=== PATIENT | male | born 1990 ===

== ENCOUNTER 2017-11-21 08:05 | Day surgery (SDC) | payer MEDICAID ==
[2017-11-15 08:38] VITALS: BMI 292.8
[2017-11-21] MEDS ORDERED: Lactated Ringer's 1,000 ML IV ONE (10:00)
[2017-11-21 10:28] VITALS: RESP 18
[2017-11-21] MEDS ORDERED: Bupivacaine HCl 0.25% PF (30 ml) Inj ONE (12:16)
[2017-11-21] MEDS ORDERED: Lidocaine 2% Inj (20ml) ONE (12:17)
[2017-11-21] MEDS ORDERED: Bupivacaine 0.5% Inj(30mL) ONE (12:17)
[2017-11-21] MEDS ORDERED: Lidocaine 2% Jelly (Uro-Jet) ONE (12:17)
[2017-11-21] MEDS ORDERED: Lidocaine 1% w Epi 1:100,000 Inj ONE (12:17)
[2017-11-21] MEDS ORDERED: Lidocaine Hydrochloride 1% 20 ML ONE (12:26)
[2017-11-21] MEDS ORDERED: Lidocaine 1% (10 ml) Inj IV ONE (12:45)
[2017-11-21 13:16] VITALS: BP 131/68; PULSE 68; TEMP 98; O2SAT 100
--- NOTE | 2017-12-13 21:23 | OP ---
PROCEDURE DATE: 11/21/2017 PREOPERATIVE DIAGNOSIS: Multiple genital warts. POSTOPERATIVE DIAGNOSIS: Multiple genital warts. PROCEDURE PERFORMED: Fulguration of multiple genital warts. DESCRIPTION OF PROCEDURE: The patient was placed on the operating room table in a supine position. Local anesthetic was infiltrated in each of the area that had suspicious genital warts using a cautery current set a 30 posey coag, I coagulated and fulgurated all these areas. There were six areas of genital warts that were cauterized, beyond there, I did a close inspection of the scrotal skin of genital area and I did not see any other remaining lesions. I placed some bacitracin ointment on the cauterized areas and then the patient was taken from the operating room in good condition. Meera Cheek MD
== END 2017-11-21 13:25 | disposition home or self-care (01) ==
LOC: H.OPSURG 08:05
PROVIDERS: ATTEND Urology
DX: A63.0 Anogenital (venereal) warts (principal)
CPT/HCPCS: 54065; J7120

== ENCOUNTER 2018-04-26 20:43 | Emergency (ER) | payer MEDICAID ==
[2018-04-26 20:43] VITALS: BMI 292.8
[2018-04-26 20:59] VITALS: BP 155/95; PULSE 60; RESP 16; TEMP 98.6; O2SAT 100
[2018-04-26] MEDS ORDERED: Famotidine 40 MG/5 ML PO STA (21:15)
[2018-04-26] MEDS ORDERED: DiphenhydrAMINE 50 mg/ml Inj IM STA (21:15)
[2018-04-26] MEDS ORDERED: DiphenhydrAMINE 50 mg/ml Inj ONE (21:28)
--- NOTE | 2018-04-26 21:29 | ED PDOC ---
HPI: Allergic Reaction Time Seen by Provider: 04/26/18 21:03 Chief Complaint (Nursing): Allergic Reaction Chief Complaint (Provider): Allergic Reaction History Per: Patient History/Exam Limitations: no limitations Onset/Duration Of Symptoms: Days (x1) Current Symptoms Are (Timing): Still Present Additional Complaint(s): 28 year old male presents to the ED for evaluation of an abrupt onset of a diffuse pruritic rash last night. He reports taking Benadryl this morning with transient relief of his symptoms. Otherwise denies throat swelling, shortness of breath, fever, and hx of allergic reactions. PMD: Mane Fierro Past Medical History Reviewed: Historical Data, Nursing Documentation, Vital Signs Vital Signs: Last Vital Signs Temp 98.6 F 04/26/18 20:56 Pulse 60 04/26/18 20:56 Resp 16 04/26/18 20:56 BP 155/95 H 04/26/18 20:56 Pulse Ox 100 04/26/18 20:56 - Medical History PMH: Gastritis, HTN Denies: Chronic Kidney Disease - Surgical History Surgical History: No Surg Hx - Family History Family History: States: Unknown Family Hx - Home Medications Home Medications: Ambulatory Orders Medication Instructions Recorded DiphenhydrAMINE [Benadryl] 50 mg PO Q6 PRN #20 cap 04/26/18 Famotidine [Pepcid] 40 mg PO DAILY PRN #10 tab 04/26/18 RX: Prednisone [Deltasone] 40 mg PO DAILY #8 tablet 04/26/18 - Allergies Allergies/Adverse Reactions: Allergies Allergy/AdvReac Type Severity Reaction Status Date / Time No Known Allergies Allergy Verified 04/26/18 20:56 Review of Systems ROS Statement: Except As Marked, All Systems Reviewed And Found Negative Constitutional: Negative for: Fever ENT: Negative for: Throat Swelling Respiratory: Negative for: Shortness of Breath Skin: Positive for: Rash (pruritic, diffuse) Physical Exam - Reviewed Nursing Documentation Reviewed: Yes Vital Signs Reviewed: Yes - Physical Exam Appears: Positive for: No Acute Distress Head Exam: Positive for: ATRAUMATIC, NORMOCEPHALIC Skin: Positive for: Rash (diffuse urticarial rash with blanching) Eye Exam: Positive for: Normal appearance ENT: Positive for: Normal ENT Inspection, Pharynx Is (unremarkable, clear). Negative for: Tonsillar Swelling Cardiovascular/Chest: Positive for: Regular Rate, Rhythm Respiratory: Positive for: Normal Breath Sounds. 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 Your provider was Anil Sullivan MD and you were treated for RASH. The emergency medical care you received today was directed at your acute symptoms. If you were prescribed any medication, please fill it and take as directed. It may take several days for your symptoms to resolve. Return to the Emergency Department if your symptoms worsen, do not improve, or if you have any other problems. Please contact your doctor or call one of the physicians/clinics you have been referred to that are listed on the Patient Visit Information form that is included in your discharge packet. Bring any paperwork you were given at discharge with you along with any medications you are taking to your follow up visit. Our treatment cannot replace ongoing medical care by a primary care provider outside of the emergency department. Thank you for allowing the [facility] team to be part of your care today. If you had an X-Ray or CT scan: A Radiologist will review the ED reading if any change in treatment is needed we will contact you. If you had a blood, urine, or wound culture: It will take several days for the results, if any change in treatment is needed we will contact you. If you had an STI test: It will take 48 hours for the results. Please call after 1 week if you have not heard back. Prescriptions: DiphenhydrAMINE [Benadryl] 50 mg PO Q6 PRN #20 cap PRN Reason: itching or rash Famotidine [Pepcid] 40 mg PO DAILY PRN #10 tab PRN Reason: Itching / Pruritus RX: Prednisone [Deltasone] 40 mg PO DAILY #8 tablet Instructions: Hives (DC) Forms: [employer] (Hebrew), [facility] ED School/Work Excuse Medical Decision Making ED Course and Treatment: Time: 2114 Initial Impression: allergic reaction Initial Plan: --Benadryl 50mg IM --Pepcid 40mg PO --Prednisone 40mg PO Pt advised to follow up with a conche loader and unloader or an government instructor. On re-evaluation, pt. reports rash has improved and pruritus has resolved. Denies throat swelling, SOB. --- Scribe Attestation: Documented by Carmella Lopez, acting as a scribe for Yariel Carty PA-C Provider Scribe Attestation: All medical record entries made by the Scribe were at my direction and personally dictated by me. I have reviewed the chart and agree that the record accurately reflects my personal performance of the history, physical exam, medical decision making, and the department course for this patient. I have also personally directed, reviewed, and agree with the discharge instructions and disposition. - Medication Orders Current Medication Orders: Discontinued Medications Diphenhydramine HCl (Benadryl) 50 mg IM STAT STA Stop: 04/26/18 21:16 Last Admin: 04/26/18 21:30 Dose: 50 mg IM Administration Charges Document 04/26/18 21:30 (Rec: 04/26/18 21:30 JR [id number]) Injection Site MAR Injection Site Left Deltoid Charges for Administration # of IM Administrations 1 Famotidine (Pepcid) 40 mg PO STAT STA Stop: 04/26/18 21:16 Last Admin: 04/26/18 21:30 Dose: 40 mg Prednisone (Prednisone Tab) 40 mg PO STAT STA Stop: 04/26/18 21:16 Last Admin: 04/26/18 21:30 Dose: 40 mg
== END 2018-04-26 22:07 | disposition home or self-care (01) ==
LOC: H.ER 20:43
DX: T78.40XA Allergy, unspecified, initial encounter (principal); I10 Essential (primary) hypertension
CPT/HCPCS: 96372; 99282; J1200